=== PATIENT | male | born 1940 | race Native Hawaiian/Other Pacific Islander ===

== ENCOUNTER 2017-03-04 09:50 | Outpatient (CLI) | payer MEDICARE, BC ==
[2017-03-04 10:14] LABS: BASOPHILS # (AUTO) 0.1 10^3/uL (0.0-0.1); BASOPHILS % (AUTO) 0.9 %; EOSINOPHILS # (AUTO) 0.1 10^3/uL (0.0-0.7); EOSINOPHILS % (AUTO) 2.1 %; HCT - HEMATOCRIT 42.6 % (42.0-52.0); HGB - HEMOGLOBIN 14.3 g/dL (14.0-18.0); LYMPHOCYTES # (AUTO) 1.1 10^3/uL (1.5-3.5); LYMPHOCYTES % (AUTO) 18.7 %; MEAN CORPUSCULAR HEMOGLOBIN 29.3 pg (27.0-31.0); MEAN CORPUSCULAR HGB CONC 33.5 g/dL (32.0-36.0); MEAN CORPUSCULAR VOLUME 87.6 fL (80.0-94.0); MEAN PLATELET VOLUME 8.2 fL (7.4-11.4); MONOCYTES # (AUTO) 0.4 10^3/uL (0.0-1.0); MONOCYTES % (AUTO) 7.1 %; NEUTROPHILS # (AUTO) 4.2 10^3/uL (1.5-6.6); NEUTROPHILS % (AUTO) 71.2 %; RED BLOOD COUNT 4.86 10^6/uL (4.70-6.10); UNCORRECTED WHITE BLOOD COUNT 5.8 x10^3/uL; WHITE BLOOD COUNT 5.8 x10^3/uL (4.8-10.8)
[2017-03-04 10:27] LABS: ALBUMIN/GLOBULIN RATIO 1.2 (1.0-2.2); BILIRUBIN,TOTAL 0.8 mg/dL (0.2-1.0); BUN - BLOOD UREA NITROGEN 20 mg/dL (6-20); CALCIUM 9.1 mg/dL (8.5-10.3); CARBON DIOXIDE - CO2 29 mmol/L (21-32); CHLORIDE 104 mmol/L (101-111); CREATININE 0.7 mg/dL (0.6-1.2); GFR - MDRD 110 (>89); GLUCOSE 106 mg/dL (70-100); POTASSIUM 3.5 mmol/L (3.5-5.0); SODIUM 141 mmol/L (135-145); TOTAL PROTEIN 7.5 g/dL (6.7-8.2)
[2017-03-04 10:47] LABS: HEMOGLOBIN A1C 0.63 g/dL
== END 2017-03-04 09:51 | disposition home or self-care (01) ==
LOC: LAB 09:50
PROVIDERS: ATTEND Family Medicine
DX: E74.39 Other disorders of intestinal carbohydrate absorption (principal); I10 Essential (primary) hypertension
CPT/HCPCS: 36415; 80053; 83036; 84443; 85025

== ENCOUNTER 2017-03-04 10:09 | Day surgery (SDC) | payer MEDICARE, BC ==
--- NOTE | 2017-03-04 12:02 | ED Physician Documentation ---
PD HPI UPPER EXT INJURY - Stated complaint Stated Complaint: R SHOULDER PAIN - Chief complaint Chief Complaint: Ext Problem - History obtained from History obtained from: Patient, Family () - History of Present Illness Timing - onset: Other (This is a moderately demented 76-year-old gentleman who presents with his , most of the history is from the . Without specific trauma or remembered injury he has been complaining of right shoulder pain and decreased range of motion for at least 3 days. They had a routine appointment with Dr. Mccracken today saw them and obtained a right shoulder x-ray showing a dislocation with Hill-Sachs fracture. Per the there was no remembered history of prior dislocation.) Review of Systems Unable to obtain: Dementia PD PAST MEDICAL HISTORY - Past Medical History Past Medical History: Yes Cardiovascular: Hypertension Endocrine/Autoimmune: Type 2 diabetes - Past Surgical History Past Surgical History: Yes General: Cholecystectomy, Other Ortho: Knee replacement - Present Medications Home Medications: Ambulatory Orders Medication Instructions Recorded Confirmed Hydrochlorothiazide 12.5 mg PO DAILY 11/16/12 03/04/17 Lisinopril [Zestril] 10 mg PO DAILY 11/16/12 03/04/17 Multivitamin [Multivitamins] 1 each PO DAILY 11/16/12 03/04/17 [place]-3/Dha/Epa/Fish Oil [Fish Oil] 500 mg PO DAILY 11/16/12 03/04/17 Aspirin 1 tab PO DAILY 03/04/17 03/04/17 - Allergies Allergies/Adverse Reactions: Allergies Allergy/AdvReac Type Severity Reaction Status Date / Time No Known Drug Allergies Allergy Unverified 11/16/12 15:22 - Social History Does the pt smoke?: Yes Smoking Status: Current every day smoker Does the pt drink ETOH?: No Does the pt have substance abuse?: No - Immunizations Immunizations are current?: No - POLST Patient has POLST: No PD ED PE NORMAL - Vitals Vital signs reviewed: Yes - General General: No acute distress, Other (Alert and oriented to person and place but not time or events) - Neck Neck: Supple, no meningeal sign, No bony TTP - Cardiac Cardiac: RRR, No murmur - Respiratory Respiratory: No respiratory distress, Clear bilaterally - Abdomen Abdomen: Non tender - Back Back: No CVA TTP, No spinal TTP - Derm Derm: Normal color, Warm and dry - Extremities Extremities: Other (Shoulder is nontender but he is holding it at his side and he cannot range it at all neither in abduction or really an internal or external rotation. He has good radial pulses and normal sensation over the deltoid.) - Neuro Neuro: No motor deficit, No sensory deficit - Psych Psych: Normal mood, Normal affect Results - Vitals Vitals: Vital Signs - 24 hr 03/04/17 03/04/17 03/04/17 10:25 13:00 13:08 Temperature 36.3 C L Heart Rate 84 77 74 Respiratory 16 16 21 Rate Blood Pressure 131/77 H O2 Saturation 97 03/04/17 03/04/17 03/04/17 13:14 13:20 14:19 Temperature Heart Rate 72 74 73 Respiratory 12 18 16 Rate Blood Pressure 133/69 H O2 Saturation 100 03/04/17 03/04/17 03/04/17 14:20 14:21 14:48 Temperature Heart Rate 72 71 71 Respiratory 12 12 16 Rate Blood Pressure 125/70 138/73 H 163/76 H O2 Saturation 100 100 97 03/04/17 03/04/17 03/04/17 16:15 16:20 16:25 Temperature Heart Rate Respiratory Rate Blood Pressure O2 Saturation 95 97 96 03/04/17 03/04/17 16:30 16:40 Temperature Heart Rate Respiratory Rate Blood Pressure O2 Saturation 97 99 Oxygen O2 Source Nasal cannula Procedures - Reduction Body part reduced: Right, Shoulder Shoulder reduction technique: [place] / ext rotation Reduction aftercare: NV intact, Sling - Procedural sedation Sedation prep: Informed consent, Time out completed, Last meal (nothing today), PE performed, AHA 2 - mild disease Sedation medications: propofol (70mg IVP) Patient status during sedation: Responds to tactile, Vitals remained stable, Maintained airway Sedation recovery: Recovered uneventfully PD MEDICAL DECISION MAKING - ED course ED course: 76-year-old gentleman with inferior shoulder dislocation of not completely clear chronicity, at least a few days per the . Case was discussed by phone with Dr. Batista, the orthopedic sap solution manager consultant at [facility] who reviewed the x- rays and recommended a trial of relocation with intra-articular Marcaine and if that does not work plans to take him to the operating room. The joint was infiltrated with 10 mL of 0.5% Marcaine and about [address] Batista came in and gently tried to relocate it without success and he wanted me to give him a trial of conscious sedation. Conscious sedation went well but unfortunately the shoulder is not reduced on the post x-ray, Dr. Batista was called again and plans to take him to the operating room. Departure - Departure Disposition: ED Transfer to [facility] Clinical Impression: Dislocation of right shoulder joint Qualifiers: Encounter type: initial encounter Qualified Code(s): S43.004A - Unspecified dislocation of right shoulder joint, initial encounter Condition: Stable Discharge Date/Time: 03/04/17 15:48
[2017-03-04] MEDS ORDERED: BUPIVACAINE 0.5%-EPI 1:200000 PF 30 ML VIAL ONE (12:13)
[2017-03-04] MEDS ORDERED: SODIUM CHLORIDE FLUSH 0.9% 10 ML SYRINGE IVP ONE (12:47)
[2017-03-04] MEDS ORDERED: PROPOFOL 200 MG/20 ML VIAL IVP ONE ×2 (12:54→16:15)
[2017-03-04] MEDS ORDERED: PROPOFOL 200 MG/20 ML VIAL IVP STA (13:09)
--- NOTE | 2017-03-04 13:56 | XRAY Preliminary Report ---
Exam: XR Shoulder 2 View RT IMPRESSION: Persistent anterior shoulder dislocation. [facility] SITE ID: [id number]
--- NOTE | 2017-03-04 13:59 | XRAY Report ---
EXAM: RIGHT SHOULDER RADIOGRAPHY EXAM DATE: 03/04/2017 01:42 PM. CLINICAL HISTORY: Post reduction. COMPARISON: 03/04/2017 at 0756 hrs.. TECHNIQUE: 2 views. FINDINGS: There is persistent anterior shoulder dislocation. There is a Hill-Sachs deformity. IMPRESSION: Persistent anterior shoulder dislocation. [facility] Referring Provider Line: [phone] SITE ID: [id number]
[2017-03-04] MEDS ORDERED: LIDOCAINE-MPF 2% 5 ML VIAL IM ONE (16:15)
[2017-03-04] MEDS ORDERED: SUCCINYLCHOLINE 200 MG/10 ML VIAL IVP ONE (16:15)
[2017-03-04] MEDS ORDERED: LACTATED RINGERS 1,000 ML IV ONE (16:22)
--- NOTE | 2017-03-04 16:32 | XRAY Report ---
EXAM: RIGHT SHOULDER RADIOGRAPHY EXAM DATE: 03/04/2017 04:19 PM. CLINICAL HISTORY: DISLOCATED RIGHT SHOULDER. COMPARISON: Radiograph from earlier today. TECHNIQUE: 1 views. FINDINGS: Bones: Irregularity at the posterior lateral humeral head with suggestion of subtle lucency could rep resent a Hill-Sachs fracture injury. Joints: A. C. Alignment is normal and unchanged with joint space narrowing and osteophytes. Subacromi al spurring is seen. There is persistent anterior inferior right shoulder dislocation. Soft tissues: Soft tissue swelling seen at the shoulder. IMPRESSION: 1. Persistent anterior inferior shoulder dislocation is seen. 2. Irregularity of the posterior lateral humeral head with suggestion of subtle lucency could represe nt a Hill-Sachs injury. [facility] Referring Provider Line: [phone] SITE ID: [id number]
[2017-03-04] MEDS ORDERED: fentaNYL 100 MCG/2 ML VIAL ONE (16:37)
[2017-03-04] MEDS ORDERED: KETOROLAC 15 MG/ML VIAL ONE (17:13)
[2017-03-04] MEDS ORDERED: HYDROcod/ACETAM 5/325 MG TABLET ONE (17:14)
[2017-03-04 18:18] VITALS: BP 157/80
--- NOTE | 2017-03-04 19:44 | PROCEDURE REPORT ---
PREOPERATIVE DIAGNOSIS: Right shoulder anterior dislocation. POSTOPERATIVE DIAGNOSIS: Right shoulder anterior dislocation. NAME OF PROCEDURE: Closed reduction attempted of the right shoulder under general anesthesia. SURGEON: Prem Batista MD. ANESTHESIA: General. ANESTHESIA PROVIDER: Vishnu. INDICATIONS FOR SURGERY: The patient is a 76-year-old male who has dementia, lives with his at [facility], has had an indeterminate period of right shoulder pain without history of known trauma, who was referred to the emergency room because of chronic shoulder pain for x-rays today and found to have an anterior shoulder dislocation. The patient's prior history does not include any history of trauma, n o history of prior shoulder dislocations, and a very obscure and obtuse history of the onset of dimin ished shoulder function and pain. The patient by report had been driving car as recently as Thursday or Thursday but doing so poorly and using his left hand only. FINDINGS AT SURGERY: The patient's daughter states that he has been very sedentary and they have not seen him do overhead activity with his arm for an indeterminate time. Recommendation, after an attemp t by the emergency room doctor at closed reduction under conscious sedation, was the patient to under go full general anesthesia for another attempt at closed reduction in the operating room with the pos sibility for open reduction considered. DESCRIPTION OF OPERATIVE PROCEDURE: The patient was taken to the operating room. He was given a full anesthetic and muscle paralysis, and reduction was performed on his shoulder. The shoulder was not re ducible by traction and direct pressure and manipulation, and there was a constant grinding sensation in the shoulder and no stable reduction was evident. A followup x-ray was done, positioning the arm in slight neutral rotation for a better view of the shoulder joint, and this confirmed that the shoul brad remained dislocated and that there was some deformity of the humeral head, more evident on new fi lms than on prior films. At this point, it was elected to talk to the family and cease and stop any f urther intervention for this problem until a further plan was discussed with the family, so the patie nt was awakened and taken to the recovery room in a sling in stable condition. The postoperative plan after discussion was the family is for the patient to be discharged to home with pain medication in a sling and return to the outpatient clinic for preparation and further discussions about further jesse atment, including possible hemiarthroplasty of the shoulder and scheduled also for an elective CT sca n of his shoulder. JOB #: [id number] EXT JOB #:[id number]
== END 2017-03-04 15:16 | disposition home or self-care (01) ==
LOC: ED 10:09 → SDS 15:15
PROVIDERS: ATTEND Orthopaedic Surgery
PROC: 0RSJXZZ Reposition Right Shoulder Joint, External Approach (ICD-10-PCS; principal; 2017-03-04 15:00)
DX: S43.004A Unspecified dislocation of right shoulder joint, initial encounter (principal); I10 Essential (primary) hypertension; E11.9 Type 2 diabetes mellitus without complications; F17.210 Nicotine dependence, cigarettes, uncomplicated; E74.39 Other disorders of intestinal carbohydrate absorption
CPT/HCPCS: 23650; 23655; 36415; 73030; 80053; 83036; 84443; 85025; 94770; 99152; 99283; 99284; A9270; J7120

== ENCOUNTER 2017-03-06 15:01 | Outpatient (CLI) | payer MEDICARE, BC ==
--- NOTE | 2017-03-06 17:09 | CT Preliminary Report ---
Exam: CT Upper Extremity Right W/O IMPRESSION: 1. Impacted anterior fracture dislocation of the humerus. The anterior margin of the bony glenoid is lodged within the Hill-Sachs deformity. Bony loose bodies and chondrocalcinosis are noted. 2. Moderate generalized osteopenia. 3. Osteoarthritis of the acromioclavicular joint. [facility] MUSCULOSKELETAL RADIOLOGY SECTION The call report notification system was initiated by Dr. Gregorio Nick at 15:47 hrs on 03/06/17 . The projection camera operator provider was not available by 1700 hrs despite multiple pages. SITE ID: [id number]
--- NOTE | 2017-03-06 17:12 | CT Report ---
EXAM: RIGHT SHOULDER CT WITHOUT CONTRAST EXAM DATE: 03/06/2017 03:32 PM. CLINICAL HISTORY: RT SHOULDER DISLOCATION. COMPARISON: X-ray 03/04/2017. TECHNIQUE: Thin-section axial images were acquired of the shoulder without contrast. Post-processing: Oblique coronal and sagittal reformats. Other: None. In accordance with CT protocol optimization, one or more of the following dose reduction techniques w ere utilized for this exam: automated exposure control, adjustment of mA and/or KV based on patient s ize, or use of iterative reconstructive technique. FINDINGS: Bones: There is an anterior dislocation of the humeral head. There is a fracture in the posterior mar gin of the humeral head, more anterior than normally seen with a Hill-Sachs deformity. The anterior m argin of the bony glenoid is lodged within the Hill-Sachs deformity preventing normal reduction of th e dislocation. The bony opacities seen throughout the joint space suggestive of loose bodies. Foci of chondrocalcinosis are also present. Moderate generalized osteopenia. Acromioclavicular Region: Osteoarthritis of the acromioclavicular joint. Glenohumeral Joint: See above. Mild osteoarthritis of the humeral joint. Musculature: Normal. No fatty atrophy. Other: The visualized lungs are unremarkable. No lymphadenopathy in the visualized axilla. IMPRESSION: 1. Impacted anterior fracture dislocation of the humerus. The anterior margin of the bony glenoid is lodged within the Hill-Sachs deformity. Bony loose bodies and chondrocalcinosis are noted. 2. Moderate generalized osteopenia. 3. Osteoarthritis of the acromioclavicular joint. [facility] MUSCULOSKELETAL RADIOLOGY SECTION The call report notification system was initiated by Dr. Gregorio Nick at 15:47 hrs on 03/06/17 . The insulation applicator provider was not available by 1700 hrs despite multiple pages. The above findings were discussed with None Available by Dr. Gregorio Nick at 17:08 hrs on . Referring Provider Line: [phone] SITE ID: [id number]
== END 2017-03-06 15:02 | disposition home or self-care (01) ==
LOC: DI 15:01
PROVIDERS: ATTEND Orthopaedic Surgery
DX: S42.291A Other displaced fracture of upper end of right humerus, initial encounter for closed fracture (principal); M11.211 Other chondrocalcinosis, right shoulder; M85.811 Other specified disorders of bone density and structure, right shoulder; M19.011 Primary osteoarthritis, right shoulder

== ENCOUNTER 2017-11-23 08:00 | Outpatient (CLI) | payer MEDICARE, BC ==
[2017-11-23 19:03] LABS: BASOPHILS # (AUTO) 0.1 10^3/uL (0.0-0.1); BASOPHILS % (AUTO) 1.1 %; EOSINOPHILS # (AUTO) 0.3 10^3/uL (0.0-0.7); EOSINOPHILS % (AUTO) 4.9 %; HGB - HEMOGLOBIN 13.6 g/dL (14.0-18.0); LYMPHOCYTES # (AUTO) 1.1 10^3/uL (1.5-3.5); LYMPHOCYTES % (AUTO) 20.8 %; MEAN CORPUSCULAR HEMOGLOBIN 29.5 pg (27.0-31.0); MEAN CORPUSCULAR HGB CONC 32.9 g/dL (32.0-36.0); MEAN CORPUSCULAR VOLUME 89.6 fL (80.0-94.0); MEAN PLATELET VOLUME 8.8 fL (7.4-11.4); MONOCYTES # (AUTO) 0.5 10^3/uL (0.0-1.0); MONOCYTES % (AUTO) 9.8 %; NEUTROPHILS # (AUTO) 3.4 10^3/uL (1.5-6.6); NEUTROPHILS % (AUTO) 63.4 %; PLT - PLATELET COUNT 197 10^3/uL (130-450); RED CELL DISTRIBUTION WIDTH 14.6 % (12.0-15.0); WHITE BLOOD COUNT 5.3 x10^3/uL (4.8-10.8)
[2017-11-23 19:53] LABS: ALBUMIN 4.1 g/dL (3.2-5.5); ALBUMIN/GLOBULIN RATIO 1.3 (1.0-2.2); BILIRUBIN,TOTAL 0.8 mg/dL (0.2-1.0); CALCIUM 8.8 mg/dL (8.5-10.3); CREATININE 0.7 mg/dL (0.6-1.2); TOTAL PROTEIN 7.2 g/dL (6.7-8.2)
== END 2017-11-23 08:01 | disposition home or self-care (01) ==
LOC: LAB.WCP 08:00
PROVIDERS: ATTEND Family Medicine
DX: I10 Essential (primary) hypertension (principal)
CPT/HCPCS: 36415; 80053; 84443; 85025

== ENCOUNTER 2018-09-17 11:27 | Outpatient (CLI) | payer MEDICARE, BC ==
[2018-09-17 18:42] LABS: BASOPHILS # (AUTO) 0.1 10^3/uL (0.0-0.1); BASOPHILS % (AUTO) 1.1 %; EOSINOPHILS # (AUTO) 0.2 10^3/uL (0.0-0.7); EOSINOPHILS % (AUTO) 3.3 %; LYMPHOCYTES # (AUTO) 1.1 10^3/uL (1.5-3.5); LYMPHOCYTES % (AUTO) 22.7 %; MEAN CORPUSCULAR HEMOGLOBIN 29.3 pg (27.0-31.0); MEAN CORPUSCULAR HGB CONC 32.9 g/dL (32.0-36.0); MEAN CORPUSCULAR VOLUME 89.3 fL (80.0-94.0); MEAN PLATELET VOLUME 8.9 fL (7.4-11.4); MONOCYTES # (AUTO) 0.6 10^3/uL (0.0-1.0); MONOCYTES % (AUTO) 12.4 %; NEUTROPHILS # (AUTO) 2.9 10^3/uL (1.5-6.6); NEUTROPHILS % (AUTO) 60.5 %; PLT - PLATELET COUNT 189 10^3/uL (130-450); RED BLOOD COUNT 4.77 10^6/uL (4.70-6.10); RED CELL DISTRIBUTION WIDTH 14.8 % (12.0-15.0); WHITE BLOOD COUNT 4.9 x10^3/uL (4.8-10.8)
[2018-09-17 19:38] LABS: ALBUMIN/GLOBULIN RATIO 1.3 (1.0-2.2); CALCIUM 9.2 mg/dL (8.5-10.3); CREATININE 0.7 mg/dL (0.6-1.2)
[2018-09-17 21:15] LABS: HEMOGLOBIN A1C 0.54 g/dL; HEMOGLOBIN A1C % 5.4 % (4.6-6.2)
== END 2018-09-17 23:59 | disposition home or self-care (01) ==
LOC: LAB.WCP 11:27
PROVIDERS: ATTEND Family Medicine
DX: C20 Malignant neoplasm of rectum (principal); E74.39 Other disorders of intestinal carbohydrate absorption; I10 Essential (primary) hypertension
CPT/HCPCS: 36415; 80053; 83036; 84443; 85025

== ENCOUNTER 2019-03-17 08:02 | Outpatient (CLI) | payer MEDICARE, BC | END 2019-03-17 08:03 | disposition E | LOC: EMS 08:02 | PROVIDERS: ATTEND Surgery ==